=== PATIENT | male | born 1945 | race Caucasian/White ===

== ENCOUNTER 2025-10-24 13:27 | Emergency (ER) | payer OTHER, SELFPAY ==
[2025-10-24] VITALS (8 sets, daily range): BP systolic 149–180; BP diastolic 68–95; PULSE 59–77; RESP 14–23; TEMP 36.4; O2SAT 95–98; BMI 37.6
--- NOTE | 2025-10-24 14:07 | ED_ITS ---
<Statement entered by Prasanth Aguilar MD - 10/28/25 14:40> I was consulted by the VIRA, and we discussed the complexity of the problems being addressed. I approved the treatment and management plan for this patient's care in the emergency department, thus performing a substantive portion of the medical decision making. Prasanth Aguilar MD, ARABELLA, FACEP Discharge Plan Disposition Patient Disposition: Home, Self-Care Condition: Good Prescriptions Prescriptions: No Action pramipexole 1 mg Tablet 1 mg PO HS atorvastatin 40 mg Tablet 40 mg PO DAILY levothyroxine 137 mcg Tablet 137 mcg PO DAILY hydrochlorothiazide 50 mg Tablet 50 mg PO DAILY prednisolone acetate 1 % Drops,Suspension 1 drp Eye-Both DAILY methocarbamol 750 mg Tablet 750 mg PO HS losartan 25 mg Tablet 25 mg PO DAILY triamterene-hydrochlorothiazid 75-50 mg Tablet 1 tab PO DAILY albuterol 90 mcg/actuation Aerosol 90 mcg INHALATION DAILY loratadine 10 mg Capsule 10 mg PO DAILY tiotropium bromide 2.5 mcg/actuation Mist 2.5 mcg INHALATION DAILY apixaban 5 mg Tablet 5 mg PO BID metformin 500 mg Tablet 500 mg PO DAILY oxybutynin chloride 10 mg Tablet Extended Release 24hr 10 mg PO DAILY amiodarone 200 mg Tablet 200 mg PO BID valacyclovir 1 gram Tablet 1,000 mg PO BID amlodipine 5 mg Tablet 5 mg PO DAILY citalopram 20 mg Tablet 20 mg PO DAILY benzonatate 100 mg Capsule 100 mg PO DAILY mirtazapine 30 mg Tablet 30 mg PO DAILY omeprazole [Prilosec] 20 mg Capsule,Delayed Release(Dr/Ec) 20 mg PO BID prazosin 2 mg Capsule 2 mg PO DAILY Referrals Follow up/Referrals: Provider,Referral, MD [Primary Care Provider, Medical] - See instructions Activity Restrictions/Add. Instructions Additional Instructions/Restrictions: Please return to the emergency department with any worsening signs or symptoms. [facility] in the upcoming days/weeks. Would consider cardiology or pulmonology follow-up in the upcoming days/weeks. Please continue to take all your medications as prescribed. Clinical Impressions Clinical Impression: Dyspnea on exertion Instructions Patient Instructions: DI for Shortness of Breath Print Language Print Language: Georgian Discharge ED Provider: Prasanth Aguilar General Adult [facility] General Chief complaint: Shortness of Breath/Dyspnea Stated complaint: palpations, afib, chest tightness Time Seen by Provider: 10/24/25 13:36 Mode of Arrival: Ambulatory Source of Information: Patient Description of Symptoms (Recalled from ER Triage Doc. by RN): Pt present with c/o sob, left chest pain, and overall weakness. Pt states the chest pain is intermittent and usually flares up when he goes into afib, which pt states he has been going in and out of for a few days now. History of Present Illness HPI narrative: 79-year-old male presents to the emergency department accompanied by his for a 2 to 3-month history of dyspnea on exertion, patient states he can hardly even walk to the mailbox anymore without being short of breath , patient also endorses waxing and waning chest tightness throughout this time, last episode was yesterday, substernal nonradiating, 6 out of 10 in maximal pain, currently 0 out of 10 no chest pain/chest pain-free at this time. Patient states he called his [place] doctor who advised me to come to the emergency department to get checked out patient [place] any fever or chills, does admit to a productive cough with phlegm , for the last 5 days, denies any nausea vomiting abdominal pain constipation diarrhea, no urinary symptomatology, patient is a former smoker, former alcohol use, no drug use. Other past medical history is consistent with atrial fibrillation on anticoagulation therapy with Eliquis rate control with amiodarone,, hyperlipidemia, hypertension, EDGARD/MDD, hypothyroidism, T2DM, GERD, OAB, BPH. Initial triage vitals are unremarkable. Please note that above description of symptoms, in this electronic medical record under categorization of recalled from ER triage doctor by RN are reflective of an initial nursing assessment, however, is not reflective of my full history and physical exam that was personally taken and clarified. Consequentially, this preceding description of symptoms, which may include the patient's categorized chief complaint in the EMR, do not reflect my personal clinical impression, and the ultimate description of history of present illness and patient stated complaints should be deferred to this section of the note. Unless stated otherwise or congruent with this section of the note, additional signs, symptoms, or incongruence should be interpreted as inaccurate with my clinical impression. Onset (ago): month(s) Related Data Home Medications ?Medication ?Instructions ?Recorded ?Confirmed albuterol 90 mcg/actuation aerosol 90 mcg inhalation D AILY 10/24/25 10/24/25 inhaler amiodarone 200 mg tablet 200 mg PO BID 10/24/2510/24 amlodipine 5 mg tablet 5 mg PO DAILY 10/24/2510/24 apixaban 5 mg tablet 5 mg PO BID 10/24/25 5 atorvastatin 40 mg tablet 40 mg PO DAILY 10/24/2510/06 benzonatate 100 mg capsule 100 mg PO DAILY 10/24/25 citalopram 20 mg tablet 20 mg PO DAILY 10/24/2510/06 hydrochlorothiazide 50 mg tablet 50 mg PO DAILY 10/24/25 levothyroxine 137 mcg tablet 137 mcg PO DAILY 10/24/25 10/24/25 loratadine 10 mg capsule 10 mg PO DAILY 10/24/2510/06 losartan 25 mg tablet 25 mg PO DAILY 10/24/2510/06 metformin 500 mg tablet 500 mg PO DAILY 10/24/25 methocarbamol 750 mg tablet 750 mg PO HS 10/24/2510/06 mirtazapine 30 mg tablet 30 mg PO DAILY 10/24/2510/06 omeprazole 20 mg capsule,delayed 20 mg PO BID 10/24/25 10/24/25 release oxybutynin chloride 10 mg 10 mg PO DAILY 10/24/2510/06 tablet,extended release 24 hr pramipexole 1 mg tablet 1 mg PO HS 10/24/25 10/24/25 prazosin 2 mg capsule 2 mg PO DAILY 10/24/2510/24 prednisolone acetate 1 % eye 1 drp Eye-Both DAILY 10/0610/24/25 drops,suspension tiotropium bromide 2.5 2.5 mcg inhalation DAILY 10/24/25 mcg/actuation mist for inhalation triamterene 75 1 tab PO DAILY 10/24/2510/06 mg-hydrochlorothiazide 50 mg tablet valacyclovir 1 gram tablet 1,000 mg PO BID 10/24/25 Allergies Allergy/AdvReac Type Severity Reaction Status Date / Time No Known Allergies Allergy Verified 10/24/25 13:42 [facility] Disclaimer: The information contained in this section may have been updated after the patient was seen, as this information can be updated by other users. Social History Smoking Status: Never smoker alcohol intake: former current occupational status: other Travel in the last 8 weeks?: None ROS Obtained: Yes All systems reviewed & no additional complaints except as documented Physical Exam General General appearance: alert and in no apparent distress Head Head exam: atraumatic and normocephalic Eye Eye exam: Present PERRL and EOMI ENT ENT exam: Present mucous membranes moist Neck Neck exam: Present normal inspection Chest Chest inspection: Present normal inspection and symmetric chest wall rise Respiratory Respiratory exam: Present normal lung sounds bilaterally; Absent respiratory distress, wheezes or stridor Cardiovascular Cardiovascular exam: Present regular rate and normal rhythm Abdominal Exam Abdominal exam: Present soft and distention; Absent tenderness, guarding, rebound or rigidity Extremities Exam Extremities exam: Present normal inspection Neurological Exam Neurological exam: Present alert and oriented X3 Psychiatric Psychiatric exam: Present normal affect Skin Skin exam: Present warm and dry Medical Decision Making Medical Records Medical records reviewed: Yes I reviewed the patient's medical records. Screening: Per USPSTF and CDC recommendations, given the prevalence of disease in our region, it is our hospital?s policy to screen for HIV and viral Hepatitis for all patients aged 18 and over and those with ongoing risk factors. Tiburcio Inquiry Pt receiving controlled substance: No Tiburcio was queried for this patient: No Vital Signs: 10/24/25 13:38 Temperature 97.5 F L Temperature Source Oral Pulse Rate [Right] 65 Respiratory Rate 23 Blood Pressure [Right Arm] 180/95 H Blood Pressure Mean [Right Arm] 123 Blood Pressure Source [Right Arm] Automatic Cuff Blood Pressure Position [Right Arm] Sitting 02 Sat by Pulse Oximetry 98 Oxygen Delivery Method Room Air Lab Data Lab results reviewed: Yes I reviewed the patient's lab results. Lab Results 10/24/25 13:57: WBC 7.2, RBC 4.29 L, Hgb 13.5 L, Hct 38.1 L, MCV 88.8, MCH 31.5 H, MCHC 35.4, RDW 12.9, Plt Count 201, MPV 9.8, Neut % (Auto) 75.1, Lymph % (Auto) 15.7, [place] % (Auto) 7.1, Eos % (Auto) 1.5, Baso % (Auto) 0.3, Neut # (Auto) 5.4, Lymph # (Auto) 1.1, [place] # (Auto) 0.5, Eos # (Auto) 0.1, Baso # (Auto) 0.0, D-Dimer 0.29, Sodium 134 L, Potassium 3.3 L, Chloride 100, Carbon Dioxide 23, Anion Gap 14.3, BUN 17, Creatinine 1.10, Estimated Creat Clear 94, Estimated GFR 65, Est GFR ( Amer) 78, Glucose 202 H, Calcium 8.5, Magnesium 1.7, Total Bilirubin 0.7, AST 38, ALT 36, Alkaline Phosphatase 68, Troponin I < 0.01, NT-Pro-B Natriuret Pep 95.6, Total Protein 6.7, Albumin 4.0, Globulin 2.7, Albumin/Globulin Ratio 1.5, Lipase 37 10/24/25 14:16: Urine Color Yellow, Urine Appearance Sl cloudy, Urine pH 6.5, Ur Specific [place] 1.010, Urine Protein Negative, Urine Glucose (UA) Trace, Urine Ketones Negative, Urine Blood Negative, Urine Nitrate Negative, Urine Bilirubin Negative, Urine Urobilinogen 0.2, Ur Leukocyte Esterase Negative, Urine RBC None, Urine WBC Occasional, Ur Squamous Epith Cells Occasional, Urine Bacteria None 10/24/25 14:28: SARS-CoV-2 (PCR) Not detected, Influenza A Untype (PCR) Not detected, Influenza Type B (PCR) Not detected 10/24/25 13:57 10/24/25 13:57 Orders (Tests/Meds): ED MEDICATIONS Discontinued Medications Generic Name Dose Route Start Last Admin Trade Name Freq PRN Reason Stop Dose Admin Potassium Chloride 40 meq 10/24/25 14:46 10/24/25 15:20 Potassium Chloride 20meq Tab PO 10/24/25 14:47 40 meq ONCE ONE Administration ORDERS Category Date Time Status XR chest portable Stat Exams 10/24/25 14:13 Completed Complete Blood Count Auto Diff Stat Lab 10/24/25 13:57 Completed Comprehensive Metabolic Panel Stat Lab 10/24/25 13:57 Completed D-Dimer Stat Lab 10/24/25 13:57 Completed Lipase Stat Lab 10/24/25 13:57 Completed Magnesium Stat Lab 10/24/25 13:57 Completed NT Pro Brain Natriuretic Pep. Stat Lab 10/24/25 13:57 Completed Rapid PCR Covid and Flu A/B Stat Lab 10/24/25 14:28 Completed Troponin I Q3H Lab 10/24/25 17:15 Ordered Troponin I Q3H Lab 10/24/25 20:15 Ordered Troponin I Stat Lab 10/24/25 13:57 Completed Urinalysis and Microscopic Stat Lab 10/24/25 14:16 Completed Medical Decision Narrative: 79-year-old male presents emergency department with a several month history of dyspnea on exertion and chest pain with exertion, differential diagnosis include but not limited to COPD exacerbation, pleural effusion, pulmonary edema, PE, cardiac arrhythmia, electrolyte disturbance, new onset/CHF exacerbation, pneumonia, ACS, acute bronchitis, among others. I discussed this patient's case with the attending physician and at shift change Will obtain basic laboratory studies, EKG, chest x-ray, lipase level magnesium level proBNP rapid, D-dimer, PCR COVID and flu troponin UA. CBC is notable for hemoglobin of 13.5 and hematocrit 38.1, unsure of baseline, UA is unremarkable D-dimer 0.29, thus effectively ruling out VTE/PE Minimal hypokalemia 3.3, minimal hyponatremia at 134, hyperglycemia 202, will replace with 40 mEq of p.o. potassium Microscopic analysis of the patient's urine is notable for occasional WBCs, occasional squames and no bacteria. Troponin is less than 0.01 proBNP within normal limits. COVID-19 negative via PCR influenza negative via PCR Reviewed the patient's chest x-ray along the corresponding radiologic report, no acute cardiopulmonary process. I discussed these results with patient family bedside patient has remained hemodynamically stable throughout his time in the emergency department. Patient was given strict ED return precautions. 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 Patient voiced understanding and agreement with the current treatment plan/discharge plan. Critical Care Critical Care Time Critical Care Time: No
--- NOTE | 2025-10-24 14:13 | ECG_ITS ---
APPROVED REPORT Exam: Resting ECG HR:65 bpm ECG Measurements Heart Rate [address] 172 P 33 QRSd 102 QRS 38 QT 324 T -9 QTc 336 Conclusion SINUS RHYTHM LOW QRS VOLTAGE IN PRECORDIAL LEADS [QRS DEFLECTION < 1.0 mV IN CHEST LEADS] NONSPECIFIC ST & T-WAVE ABNORMALITY BORDERLINE ECG UNCONFIRMED REPORT Electronically signed by : Douglas Aguilar, 10/24/2025 15:17:19
--- NOTE | 2025-10-24 14:13 | XR_ITS ---
FINAL REPORT CLINICAL HISTORY: Shortness of breath COMPARISON: None FINDINGS: Film was obtained in lordotic positioning. The heart size is normal. The mediastinum is normal. There is no focal infiltrate or edema. There are no pleural effusions. There is no pneumothorax. There is no osseous abnormality. IMPRESSION: No acute cardiopulmonary process Reviewed, Interpreted and Dictated by Tim Mcclain MD Transcribed by Savanna Torres Authenticated and . [facility]
[2025-10-24 14:18] LABS: Hematocrit 38.1 % (42.0-52.0); Hemoglobin 13.5 g/dL (14.1-18.0); Immature Granulocytes % 0.3 %; Mean Corpuscular HGB Conc 35.4 g/dL (31.8-35.4); Mean Corpuscular Hemoglobin 31.5 pg (27.0-31.2); Mean Corpuscular Volume 88.8 fl (80-94); Nucleated Red Blood Cells % 0 %; Platelet Count 201 K/mm3 (142-424); Red Blood Count 4.29 M/mm3 (4.60-6.20); Red Cell Distribution Width-SD 41.7 fL; White Blood Count 7.2 K/mm3 (4.8-10.8)
[2025-10-24 14:20] LABS: Microscopic, Urine URINE MICROSCOPIC (MICROSCOPIC)
[2025-10-24 14:27] LABS: Bilirubin,Urine Negative (Negative); Color,Urine YELLOW (Yellow); Glucose,Urine (UA) TRACE (Negative); Ketones,Urine Negative (Negative); Leukocyte Esterase,Urine Negative (Negative); PH,Urine 6.5 (5.0-8.5); Protein,Urine Negative (Negative); Specific Gravity, Urine 1.010 (1.005-1.030); Urobilinogen,Urine 0.2 EU/dl (0.2)
[2025-10-24 14:33] LABS: Alanine Aminotransferase 36 U/L (12-78); Albumin Level 4.0 g/dl (3.5-5.0); Albumin/Globulin Ratio 1.5 (1.1-1.8); Alkaline Phosphatase 68 U/L (38-126); Anion Gap 14.3 mEq/L (5-15); Aspartate Amino Transferase 38 U/L (17-59); Bilirubin,Total 0.7 mg/dl (0.2-1.3); Blood Urea Nitrogen 17 mg/dl (9-20); Calcium 8.5 mg/dl (8.4-10.2); Carbon Dioxide 23 mmol/L (22.0-30.0); Chloride 100 mmol/L (98-107); Creatinine Clearance Estimated 94 mL/min (50-200); Creatinine,Serum 1.10 mg/dl (0.66-1.25); Estimated Glomerular Filt Rate 65 ml/min (>60); GFR (African American) 78 ML/MIN (>60); Globulin 2.7 g/dL (1.3-3.2); Glucose 202 mg/dl (74-100); Lipase 37 U/L (23-300); Magnesium 1.7 mg/dl (1.6-2.3); Potassium 3.3 mmoL/L (3.5-5.1); Sodium 134 mmol/L (136-145); Total Protein,Serum 6.7 g/dl (6.3-8.2)
[2025-10-24 14:36] LABS: Coronavirus 19, PCR Not Detected (NotDetected); Influenza A, PCR Not Detected (NotDetected); Influenza B, PCR Not Detected (NotDetected)
[2025-10-24 14:38] LABS: D-Dimer 0.29 ug/mL (0.0-0.5)
[2025-10-24 14:45] LABS: NT Pro Brain Natriuretic Pep. 95.6 pg/mL (0-450)
[2025-10-24 14:57] LABS: Squamous Epithelial Cell,Urine Occasional #/hpf (0-5); WBC,Urine Occasional #/hpf (0-3)
[2025-10-24 15:06] LABS: Troponin I < 0.01 ng/ml (0.00-0.034)
[2025-10-24] MEDS: POTASSIUM CHLORIDE 20MEQ TAB 40 MEQ PO (15:20)
== END 2025-10-24 16:18 | disposition home or self-care (01) ==
PROVIDERS: Physician Assistant; Emergency Provider Student in an Organized Health Care Education/Training Program
DX: R06.02 Shortness of breath (principal); R07.89 Other chest pain; I48.91 Unspecified atrial fibrillation; E87.6 Hypokalemia; E87.1 Hypo-osmolality and hyponatremia; E11.65 Type 2 diabetes mellitus with hyperglycemia; I10 Essential (primary) hypertension; E78.5 Hyperlipidemia, unspecified; Z79.01 Long term (current) use of anticoagulants; Z87.891 Personal history of nicotine dependence; Z79.84 Long term (current) use of oral hypoglycemic drugs
CPT/HCPCS: 71045; 80053; 81001; 83690; 83735; 83880; 84484; 85025; 85378; 87636; 93005; 99285